=== PATIENT | female | born 1985 | race Asian ===

== ENCOUNTER → 2018-10-09 | Outpatient (REF) | payer OTHER ==
[~2018-10-09] MED LIST: AMOX500C PO; FAMO1TAB25 PO; REGL10TA6 PO
== END ==
LOC: M SFHCLERA 19:04
PROVIDERS: ATTEND Nurse Practitioner Family
DX: O99.89 Other specified diseases and conditions complicating pregnancy, childbirth and the puerperium (principal); J02.9 Acute pharyngitis, unspecified; Z3A.26 26 weeks gestation of pregnancy

== ENCOUNTER 2018-12-25 05:15 | Inpatient (IN) | payer OTHER ==
[2018-12-25] VITALS (7 sets, daily range): BP systolic 114–131; BP diastolic 69–81
[~2018-12-25] VITALS: Ht 147.3 cm; Wt 64.0 kg
[~2018-12-25 05:15] MED LIST changes: +FERR325T3 PO; +PRENTAB29 PO
[2018-12-25] MEDS ORDERED: LR 1,000 ML IV ONE (05:30)
[2018-12-25] MEDS ORDERED: BICITRA 30ML SOLN UDC PO ONE (05:45)
[2018-12-25] MEDS ORDERED: LR 1,000 ML IV SCH ×2 (06:30→09:30)
[2018-12-25 06:58] LABS: HEMATOCRIT 38.5 % (36.0-47.0); HEMOGLOBIN 13.1 g/dl (12.0-15.5); MEAN CORPUSCULAR HEMOGLOBIN 32.3 pg (27.0-33.0); MEAN CORPUSCULAR VOLUME 95.1 fl (80.0-96.0); PLATELET COUNT, AUTOMATED 241 10^3/uL (150-450); RED BLOOD COUNT 4.05 10^6/uL (4.00-5.40); WHITE BLOOD COUNT 9.8 10^3/uL (4.0-10.0)
[2018-12-25] MEDS ORDERED: MORPHINE PRES-FREE INJ 10 MG/10 ML VIAL (J2274) As Ordered ONE (07:47)
[2018-12-25] MEDS ORDERED: KETOROLAC 60 MG/2 ML VIAL (J1885) As Ordered ONE (07:47)
[2018-12-25] MEDS ORDERED: BUPIVACAINE/DEXTROSE 0.75% 2 ML AMP As Ordered ONE (07:47)
[2018-12-25] MEDS ORDERED: OXYTOCIN INJ 10 UNITS/ML VIAL (J2590) As Ordered ONE (07:47)
[2018-12-25] MEDS ORDERED: ONDANSETRON 4MG/2ML VIAL (J2405) As Ordered ONE (07:47)
[2018-12-25] MEDS ORDERED: ePHEDrine SULFATE 25 MG/5 ML(5MG/ML) SYRINGE As Ordered ONE ×2 (07:47→08:03)
[2018-12-25] MEDS ORDERED: METOCLOPRAMIDE INJ 10MG/2ML VIAL (J2765) IV PRN ×2 (07:55→09:00)
[2018-12-25] MEDS ORDERED: NALOXONE INJ 0.4 MG/1 ML VIAL (J2310) IV PRN ×2 (07:55)
[2018-12-25] MEDS ORDERED: ONDANSETRON 4MG/2ML VIAL (J2405) IV PRN ×2 (07:55→09:30)
[2018-12-25] MEDS ORDERED: NALBUPHINE HCL 10 MG/ML AMP (J2300) IV PRN (07:55)
[2018-12-25] MEDS ORDERED: diphenhydrAMINE INJ 50MG/ML VIAL (J1200) IV PRN (07:55)
[2018-12-25] MEDS ORDERED: PHENYLephrine HCL 500 MCG/5 ML (100MCG/ML) SYRINGE (J2370) As Ordered ONE (08:31)
[2018-12-25] MEDS ORDERED: OXYTOCIN 30 UNITS IN 0.9% NaCl 500ML IV BAG (J2590) As Ordered ONE (08:53)
[2018-12-25] MEDS ORDERED: OXYTOCIN DRIP 30 UNITS in APPROPRIATE DILUENT 1 EA IV SCH (08:56)
[2018-12-25] MEDS ORDERED: PERCOCET 5MG/325MG TAB PO PRN ×3 (09:00→09:30)
[2018-12-25] MEDS: PRENATAL VITAMINS CHEWABLE TABLET PO SCH (09:00)
[2018-12-25] MEDS ORDERED: MEASLES,MUMPS,RUBELLA VACCINE INJ (MMR-II) (90707) SC SCH (09:00)
[2018-12-25] MEDS: DOCUSATE SODIUM 100 MG CAP PO SCH ×2 (09:00→20:17)
[2018-12-25] MEDS ORDERED: RHOGAM 300 MCG (1500 IU) INJ (J2790) IM SCH (09:00)
[2018-12-25] MEDS ORDERED: fentaNYL 100 MCG/2 ML INJECTION (J3010) IV PRN (09:30)
--- NOTE | 2018-12-25 10:06 | RO ---
DATE OF PROCEDURE: 12/25/2018 SURGEON: Jeremie Kamara MD VICE PRESIDENT [employer]: Tatyana Eason MD PREOPERATIVE DIAGNOSIS: Prior extensive right cornual ectopic at 37 weeks and 2 days. POSTOPERATIVE DIAGNOSIS: Prior extensive right cornual ectopic at 37 weeks and 2 days. ANESTHESIA: Spinal. ESTIMATED BLOOD LOSS: 500 mL. DRAINS: 100 mL in the Villagran at the end of the procedure. FLUIDS REPLACED: 1400 mL of lactated Ringer. OPERATIVE PROCEDURE: Primary low transverse section. PREOPERATIVE ANTIBIOTICS: Ancef 2 grams intravenous (IV). SPECIMENS: None. FINDINGS: A Pfannenstiel skin incision, low transverse uterine incision, clear fluid, healthy male, scores 9 and 9, weighing 2640 grams or 5 pounds 13 ounces, evidence of significant prior right cornual interruption, although well healed. No right fallopian tube present. Normal ovaries bilaterally. Normal left fallopian tube. INDICATION: Because of her prior surgery, it was recommended by the surgeon, and I agreed, to undergo a primary delivery at 37 weeks, foregoing any labor due to her increased risk for uterine rupture at her prior operative site. This was all discussed in the period, and the patient gave informed consent, and this was a scheduled delivery. DESCRIPTION OF THE OPERATION: The patient was taken to the operating room after a spinal anesthetic was easily placed. Postspinal, heart tones were normal. Villagran catheter was easily placed. She was then prepped and draped in normal sterile fashion. Test showed an adequate spinal, and a Pfannenstiel skin incision was carried down to the layer of the fascia, which was nicked in the midline and extended to the extent of the skin incision. Rose clamps were placed on the superior aspect of the fascial incision. This was tented up. The underlying rectus muscles were dissected off sharply. This was repeated inferiorly. The rectus muscles were in the midline. The peritoneal cavity was breeched with my digit, and no scar tissue was noted. A gentle stretching maneuver created an adequate peritoneal window. A bladder flap was created over the vesicouterine peritoneum without difficulty. A low transverse uterine incision was then performed. Stretched adequacy and the easily delivered through the incision with fundal pressure. The cord was clamped times two and cut, and then the placenta was delivered under traction with fundal massage and Pitocin running wide open. The uterus was delivered through the abdomen and wrapped in warm sponge and cleared of all clots and debris with two dry sponges. The uterine incision was closed from left to right with running locked suture of 0 Vicryl. An imbrication stitch using 4-0 Monocryl was done to good effect. Irrigation was performed behind the uterus. Hemostasis was noted along the incision, both before and after putting the uterus back to its anatomical position. The colic gutters were cleared bilaterally. No clots or significant blood amount was present. The peritoneum was closed with a running suture with 2-0 Vicryl, and the fascia was closed from left to right with a running suture of 0 Vicryl without difficulty. Subcutaneous tissue was copiously irrigated, made to be hemostatic, and closed with 2-0 Vicryl. The skin was closed with a 4-0 Monocryl from left to right without difficulty, and an Optifoam dressing was placed. Just prior to placing the dressing, the patient's legs were frogged, and I did a bimanual examination with a small amount of blood expressed from the uterus and cervix, and the vagina was cleared. All sponge, needle, and instrument counts were correct times three.
[2018-12-25] MEDS: KETOROLAC 30 MG/ML VIAL (J1885) IV SCH ×2 (14:03→20:17)
[2018-12-25] MEDS ORDERED: LR 500 ML IV ONE (18:30)
[2018-12-26] MEDS: KETOROLAC 30 MG/ML VIAL (J1885) IV SCH (01:37)
[2018-12-26 02:08] VITALS: BP 115/63
--- NOTE | 2018-12-26 06:04 | IPNPDOC ---
Text Note Date of Service The patient was seen on 12/26/18. NOTE PLTCS POD1 States feeling well, pain controlled with prescribed meds. Baby bonding and feeding well. No heavy VB. Lochia slowing. Ambulatory. Tolerating PO without issues. Voiding spont x1 since Villagran out. No CP/LP/SOB. VSSAF NAD A&O Incision bandage clean/dry LE no C/C/E Ut at U-2, firm, appropr tenderness UO adequate CBC this AM pending a/p: Doing well. Cont routine postop/ care. D/C likely tomorrow. Sessions Abimbola GRIFFIN, I+O Abimbola SHERIFF I+O Laboratory Tests 12/25/18 06:43 Red Blood Count 4.05, Mean Corpuscular Volume 95.1, Mean Corpuscular Hemoglobin 32.3, Mean Corpuscular Hemoglobin Concent 34.0, Red Cell Distribution Width 12.7 Vital Signs Date Time Temp Pulse Resp B/P (MAP) Pulse Ox O2 Delivery O2 Flow Rate FiO2 12/26/18 02:08 98.8 77 18 115/63 (80) 100 I&O- Last 24 Hours up to 6 AM 12/26/18 06:00 Intake Total 1503 ml Output Total 1450 ml Balance 53 ml SESSIONS,CASEY Sethi MD Dec 26, 2018 06:04
[2018-12-26 06:32] VITALS: BP 111/71
--- NOTE | 2018-12-26 07:58 | IPN ---
DATE OF SERVICE: 12/26/2018 This patient has requested circumcision of her male . After discussing risks and benefits of circumcision, the medical and nonmedical indications of penile block and aftercare, expressed understanding penile block, aftercare and bleeding, signed and witnessed consent form. All questions were answered. 20-minute discussion. We await the clearance by the assembly line worker.
[2018-12-26] MEDS: PRENATAL VITAMINS CHEWABLE TABLET PO SCH (08:01)
[2018-12-26] MEDS: DOCUSATE SODIUM 100 MG CAP PO SCH ×2 (08:01→20:45)
[2018-12-26 08:13] LABS: HEMATOCRIT 34.2 % (36.0-47.0); MEAN CORPUSCULAR HEMOGLOBIN 33.3 pg (27.0-33.0); MEAN CORPUSCULAR HGB CONC 35.1 g/dl (32.0-36.5); PLATELET COUNT, AUTOMATED 224 10^3/uL (150-450); WHITE BLOOD COUNT 12.7 10^3/uL (4.0-10.0)
[2018-12-26] MEDS: IBUPROFEN 800 MG TAB PO SCH ×2 (09:41→17:56)
[2018-12-26 10:21] VITALS: BP 120/79
[2018-12-26 14:23] VITALS: BP 111/70
[2018-12-26 18:12] VITALS: BP 128/80
[2018-12-26 22:00] VITALS: BP 110/62
[2018-12-27] MEDS: IBUPROFEN 800 MG TAB PO SCH ×2 (02:05→09:23)
[2018-12-27 06:00] VITALS: BP 139/73
[2018-12-27] MEDS: PRENATAL VITAMINS CHEWABLE TABLET PO SCH (09:22)
[2018-12-27] MEDS: DOCUSATE SODIUM 100 MG CAP PO SCH (09:24)
[2018-12-27] MEDS ORDERED: COLA100C5 PO (10:57)
[2018-12-27] MEDS ORDERED: IBUP-1114 PO (10:57)
[2018-12-27] MEDS ORDERED: OXYC1TAB23 PO (10:57)
--- NOTE | 2018-12-27 11:12 | IPNPDOC ---
Text Note Date of Service The patient was seen on 12/27/18. NOTE PLTCS POD2 States feeling well, pain controlled with prescribed meds. Baby bonding and feeding well. No heavy VB. Lochia slowing. Ambulatory. Tolerating PO without issues. Voiding spont. No CP/LP/SOB. VSSAF NAD A&O Incision bandage clean/dry LE no C/C/E Ut at U-2, firm, appropr tenderness UO adequate CBC appropr yest AM a/p: Doing well. Cont routine postop/ care. D/C today. Sessions VS,Abimbola, I+O VSAbimbola, I+O Vital Signs Date Time Temp Pulse Resp B/P (MAP) Pulse Ox O2 Delivery O2 Flow Rate FiO2 12/27/18 06:00 98.0 94 18 139/73 (95) 98 I&O- Last 24 Hours up to 6 AM 12/27/18 06:00 Output Total 450 ml Balance -450 ml SESSIONS,CASEY Sethi MD Dec 27, 2018 11:12
--- NOTE | 2018-12-27 11:14 | DS.PDOC ---
Discharge Summary General Date of Admission Dec 25, 2018 at 05:15 Date of Discharge [id number] Discharge Summary ADMITTING DIAGNOSES: Prior extensive curnual ectopic DISCHARGE DIAGNOSES: s/p PLTCS at 37+2 HOSPITAL COURSE: delivery uncomplicated. course uncompli cated. DISCHARGE MEDICATIONS: Motrin, Lanolin, Percocet, Colace DISCHARGE INSTRUCTIONS: Nothing in the vagina for 6 weeks. No driving for 2 weeks. No bathing for 4 weeks, shower only. F/U in OBGYN clinic in1-2 weeks for incision check in 6-8 weeks. Sessions Vital Signs/I&Os Vital Signs Date Time Temp Pulse Resp B/P (MAP) Pulse Ox O2 Delivery O2 Flow Rate FiO2 12/27/18 06:00 98.0 94 18 139/73 (95) 98 I&O- Last 24 Hours up to 6 AM 12/27/18 06:00 Output Total 450 ml Balance -450 ml Discharge Medications Scheduled Docusate Sodium (Colace) 100 Mg Cap, 100 MG PO BID, (Reported) Ferrous Sulfate (Ferrous Sulfate) 325 Mg Tab, 325 MG PO DAILY, (Reported) Ibuprofen (Ibuprofen) 400 Mg Tab, 800 MG PO Q8H, (Reported) Multivitamins/ ( 27-0.8 mg) 1 Tab Tab, 1 TAB PO DAILY, (Reported) Scheduled PRN Oxycodone/Acetaminophen (Oxycodone/Acetaminophen 5-325 mg) 1 Tab Tab, 1 TAB PO Q4HP PRN for MILD PAIN (PS 1-4), (Reported) Oxycodone/Acetaminophen (Oxycodone/Acetaminophen 5-325 mg) 1 Tab Tab, 2 TAB PO Q4HP PRN for MODERATE/SEVERE PAIN (PS 5-10), (Reported) Allergies Coded Allergies: No Known Allergies (Unverified , 05/29/18) SESSIONS,CASEY Sethi MD Dec 27, 2018 11:13
== END 2018-12-27 12:32 | disposition home or self-care (01) | DRG 773 ==
LOC: M ED INP 05:15 → M LDI 05:18 → M OBS 10:54
PROVIDERS: ADMIT Obstetrics & Gynecology; ATTEND Obstetrics & Gynecology
PROC: 10D00Z1 Extraction of Products of Conception, Low, Open Approach (ICD-10-PCS; principal; 2018-12-25 07:30)
DX: O80 Encounter for full-term uncomplicated delivery (principal); Z37.0 Single live birth; Z3A.37 37 weeks gestation of pregnancy; Z87.59 Personal history of other complications of pregnancy, childbirth and the puerperium

== ENCOUNTER → 2019-05-05 | Outpatient (REF) | payer OTHER ==
[~2019-05-05] MED LIST changes: +COLA100C5 PO; +IBUP-1114 PO; +OXYC1TAB23 PO
== END ==
LOC: M SFHCLERA 18:56
PROVIDERS: ATTEND Nurse Practitioner Family
DX: J02.9 Acute pharyngitis, unspecified (principal)